=== PATIENT | female | born 1995 | race American Indian/Alaskan Native ===

== ENCOUNTER 2016-06-09 13:40 | Emergency (ER) | payer MEDICAID, OTHER ==
[~2016-06-09 13:40] MED LIST: HYDR-3240 PO; ONDA4TAB7 PO; OXYC1TAB8 PO
[2016-06-09] MEDS ORDERED: SODIUM CHLORIDE 0.9% 1,000ML IVBOLUS ONE (14:30)
[2016-06-09 15:29] LABS: HEMOGLOBIN 12.3 g/dL (11.7-16.4)
[2016-06-09 15:37] LABS: ASPARTATE AMINO TRANSFERASE 10 U/L (15-37); BLOOD UREA NITROGEN 7 mg/dL (7-18)
[2016-06-09 16:43] VITALS: BP 106/63
== END 2016-06-09 16:46 | disposition home or self-care (01) ==
LOC: ED 16:30
DX: O20.0 Threatened abortion (principal); Z3A.01 Less than 8 weeks gestation of pregnancy
CPT/HCPCS: 36415; 76801; 80053; 84702; 85025; 86901